=== PATIENT | female | born 1955 | race Caucasian/White ===

== ENCOUNTER 2022-12-30 06:59 | Day surgery (SDC) | payer MEDICARE, BC ==
[~2022-12-30 06:59] MED LIST: Bupivacaine 0.5% 50 ML MDV ONE; Lidocaine 1% with EPINEPHrine 1:100,000 50 ML MDV ONE
[2022-12-30] MEDS ORDERED: Acetaminophen 500 MG Tab PO ONE (07:00)
[2022-12-30] MEDS ORDERED: Dextrose 5%-Lactated Ringers 1,000 ML IV SCH (07:30)
[2022-12-30] MEDS ORDERED: ceFAZolin 2 GM in Sodium Chloride 0.9% 50 ML IV ONE (08:00)
[2022-12-30] MEDS ORDERED: Midazolam 1 MG/ML 2 ML SDV ONE (08:04)
[2022-12-30] MEDS ORDERED: fentaNYL 100 MCG/2 ML SDV ONE (08:04)
[2022-12-30] MEDS ORDERED: Propofol 200 MG/20 ML SDV ONE (08:05)
[2022-12-30] MEDS ORDERED: Bacitracin Oint 1 GM U/D Packet ONE (08:20)
[2022-12-30 10:24] VITALS: BP 140/66; PULSE 47
== END 2022-12-30 10:37 | disposition home or self-care (01) ==
LOC: JP.SDS 06:59
PROVIDERS: ATTEND Surgery
DX: L72.11 Pilar cyst (principal); E78.5 Hyperlipidemia, unspecified; M79.7 Fibromyalgia; F32.A Depression, unspecified
CPT/HCPCS: 11420; 11421; 12032; 88304; A9270; J0690; J2250; J2704; J3010; J3490; J7121

== ENCOUNTER 2024-05-24 06:51 | Day surgery (SDC) | payer MEDICARE, BC ==
[2024-05-24] MEDS ORDERED: Propofol 200 MG/20 ML SDV ONE (07:15)
[2024-05-24] MEDS ORDERED: fentaNYL 50 MCG/ML SDV ONE (07:15)
[2024-05-24] MEDS ORDERED: Midazolam 1 MG/ML 2 ML SDV ONE (07:15)
[2024-05-24] MEDS: Lactated Ringers 1,000 ML IV SCH (07:46)
[2024-05-24 10:22] VITALS: BP 147/91; PULSE 64
== END 2024-05-24 10:15 | disposition home or self-care (01) ==
LOC: JP.SDS 06:51
PROVIDERS: ATTEND Family Medicine
DX: Z12.11 Encounter for screening for malignant neoplasm of colon (principal); E78.5 Hyperlipidemia, unspecified; F32.A Depression, unspecified
CPT/HCPCS: 45380; J2250; J2704; J3010; J7120; 00812-QZ